=== PATIENT | female | born 1995 ===

== ENCOUNTER 2018-07-05 02:31 | Inpatient (IN) | payer MEDICAID, SELFPAY ==
[2018-07-05 03:14] VITALS: BMI 30.9
[2018-07-05] MEDS ORDERED: Lactated Ringer's 1,000 ML IV ONE (06:11)
[2018-07-05] MEDS ORDERED: Lactated Ringer's 1,000 ML IV SCH (06:15)
--- NOTE | 2018-07-05 06:42 | OBHP ---
Datetime: 07/05/2018 06:05 IP Adm Impression: Term, intrauterine ; No Active Labor; Ruptured Membranes IP Admit Plan: Admit to unit; Initiate labor protocol; Initiate labor augmentation protocol Admit Comment, IP Provider: 22 yo IUP at 40w c/o leaking at 2am. yellowish and conitunous. Oc c CTX. No VB. PNC: CFH x6 MARCH 2 starting 27w PMH: PPD+ PSH: denies NKA PSoH: denies smoking ETOH drugs PFH: A: IUP 40+w Latent phase of labor PPD+ PLAN: Admit to L_D IV access Condition, labor pain management, labor, delivery and its risks/complications discussed. She unde rstood...agreed to augmentation Extremities - PN: Normal Abdomen - PN: Normal Back - PN: Normal Lungs - PN: Normal Heart - PN: Normal Thyroid - PN: Normal Neurologic - PN: Normal HEENT - PN: Normal General - PN: Normal Presentation-Admit: Vertex IP Fetus A Comments: sopno ceph FHR - Baseline A Provider: 130 Amniotic Fluid Color, Provider: Meconium, Light Membranes, Provider: Ruptured Pool Provider: Positive IP Hx Assessment: The History has been Reviewed and is Current EGA AdmitDate IP: 40.2 IP Chief Complaint: Uterine contractions; Suspected ruptured membranes NICHD Variability Prov Fetus A: Moderate 6-25bpm NICHD Accel Fetus A IP Provider: 15X15 FHR Category Provider Fetus A: Category I NICHD Decel Fetus A IP Provider: None Dilatation, Provider: 2-3 Effacement, Provider: 80 Station, Provider: -1 Genitourinary Exam: Normal
[2018-07-05 07:45] LABS: BASO % 0.3 % (0.0-2.0); EOS # 0.1 K/uL (0.0-0.7); EOS % 0.8 % (0.0-4.0); HEMOGLOBIN 11.7 g/dL (12.0-16.0); LYMPH # 3.9 K/uL (1.0-4.3); LYMPH % 29.4 % (20.0-40.0); MEAN CELL VOLUME 88.6 fl (81.0-99.0); MEAN CORPUSCULAR HEMOGLOBIN 28.8 pg (27.0-31.0); MEAN CORPUSCULAR HGB CONC 32.5 g/dL (33.0-37.0); MEAN PLATELET VOLUME 10.4 fl (7.2-11.7); MONO # 0.9 K/uL (0.0-0.8); MONO % 6.8 % (0.0-10.0); NEUT # 8.4 K/uL (1.8-7.0); NEUT % 62.7 % (50.0-75.0); NRBC % 0.1 % (0.0-0.0); RBC 4.05 Mil/uL (3.80-5.20); RED CELL DISTRIBUTION WIDTH 15.4 % (11.5-14.5); WHITE BLOOD COUNT 13.4 K/uL (4.8-10.8)
--- NOTE | 2018-07-05 07:46 | OBADHP ---
Datetime: 07/05/2018 06:05 Admit Comment, IP Provider: 22 yo IUP at 40w c/o leaking at 2am. yellowish and conitunous. Oc c CTX. No VB. PNC: CFH x6 MARCH 2 starting 27w PMH: PPD+ PSH: denies NKA PSoH: denies smoking ETOH drugs PFH: A: IUP 40+w Latent phase of labor PPD+ PLAN: Admit to L_D IV access Condition, labor pain management, labor, delivery and its risks/complications discussed. She unde rstood...agreed to augmentation Extremities - PN: Normal Abdomen - PN: Normal Back - PN: Normal Lungs - PN: Normal Heart - PN: Normal Thyroid - PN: Normal Neurologic - PN: Normal HEENT - PN: Normal General - PN: Normal Presentation-Admit: Vertex IP Fetus A Comments: sopno ceph FHR - Baseline A Provider: 130 Amniotic Fluid Color, Provider: Meconium, Light Membranes, Provider: Ruptured Pool Provider: Positive IP Hx Assessment: The History has been Reviewed and is Current IP Chief Complaint: Uterine contractions; Suspected ruptured membranes NICHD Variability Prov Fetus A: Moderate 6-25bpm NICHD Accel Fetus A IP Provider: 15X15 FHR Category Provider Fetus A: Category I NICHD Decel Fetus A IP Provider: None Dilatation, Provider: 2-3 Effacement, Provider: 80 Station, Provider: -1 Genitourinary Exam: Normal EGA AdmitDate IP: 40.2 IP Adm Impression: Term, intrauterine ; No Active Labor; Ruptured Membranes IP Admit Plan: Admit to unit; Initiate labor protocol; Initiate labor augmentation protocol
--- NOTE | 2018-07-05 17:50 | OBPN ---
Datetime: 07/05/2018 17:43 IP Progress Plan: Induction FHR - Baseline A Provider: 140 Presentation-Admit: Vertex IP Progress Note Comment: s: comfortable w/ epidural; no c/o i: 40.2wks prom LowGrade Temp@100- follow closely p: continue augment of pitocin expectant VD Vital Signs Provider: Reviewed FHR Category Provider Fetus A: Category I NICHD Variability Prov Fetus A: Moderate 6-25bpm Dilatation, Provider: 6-7 Effacement, Provider: 80 Station, Provider: -3 NICHD Decel Fetus A IP Provider: None Datetime: 07/05/2018 06:05 Pool Provider: Positive Membranes, Provider: Ruptured Amniotic Fluid Color, Provider: Meconium, Light IP Fetus A Comments: sopno ceph NICHD Accel Fetus A IP Provider: 15X15
[2018-07-05] MEDS ORDERED: Gentamicin 80 mg/2mL Inj. IVPB STA (19:22)
[2018-07-05] MEDS ORDERED: AMPicillin 2 GM in Sodium Chloride 0.9% 100 ML IVPB SCH (19:30)
[2018-07-05] MEDS ORDERED: GENTAMICIN IVPB STA (19:46)
[2018-07-05] MEDS ORDERED: SODIUM CHLORIDE 0.9% IVPB STA (19:46)
[2018-07-05] MEDS ORDERED: Lidocaine 2% MPF (5 ml) Inj ONE (21:40)
[2018-07-05] MEDS ORDERED: Morphine 1 mg/ml preservative-free Inj(Duramorph) ONE (22:25)
[2018-07-05] MEDS ORDERED: Oxycodone/Acetaminophen 5/325 mg Tab PO PRN ×2 (23:50)
[2018-07-06] MEDS ORDERED: OXYTOCIN/0.9 % NS 20 UNIT/1,000 ML BAG IV SCH (00:45)
[2018-07-06] MEDS ORDERED: Oxycodone/Acetaminophen 5/325 mg Tab PO PRN (02:56)
[2018-07-06] MEDS ORDERED: Lactated Ringer's 1,000 ML IV SCH (02:56)
[2018-07-06] MEDS ORDERED: Simethicone 80 mg Chewtab PO SCH (04:00)
[2018-07-06] MEDS: Simethicone 80 mg Chewtab PO SCH ×4 (05:22→21:26)
[2018-07-06 07:45] LABS: MEAN CELL VOLUME 88.8 fl (81.0-99.0); MEAN CORPUSCULAR HEMOGLOBIN 29.8 pg (27.0-31.0); MEAN CORPUSCULAR HGB CONC 33.5 g/dL (33.0-37.0); RBC 3.01 Mil/uL (3.80-5.20); RED CELL DISTRIBUTION WIDTH 15.8 % (11.5-14.5); WHITE BLOOD COUNT 20.6 K/uL (4.8-10.8)
[2018-07-06] MEDS: Multivitamin With Minerals Tab PO SCH ×2 (07:51→14:35)
--- NOTE | 2018-07-06 08:10 | OBDS ---
DELIVERY PERSONNEL Delivery Doctor: William Lopez MD Turbine Room Attendant: Harinder Pfeiffer RN, Shemar Anesthesiologist: Dr. Hurley Resident: Dr. Senthil Longo MATERNAL INFORMATION Delivery Anesthesia: Epidural Medications in Delivery: Pitocin Estimated Blood Loss (ml): 800 Placenta Cultured: No Maternal Complications: Chorioamnionitis; Maternal Fever Provider Comments: op note preop dx: arrest of descent; choriamniontis postop dx: same; direct op procedure: lftcd surgeon:miranda 1st asst: pgy2 dr stoner 2nd asst: pgy1 barrera gutierrez anesth: dr de guzman --epidural findings: viable male, direct oop ebl 800cc no complic plac to path neon to special care nurser pt to rr no complicaitons LABOR SUMMARY EDC: 07/03/2018 00:00 No. Babies in Womb: 1 Attempted: No Labor Anesthesia: Epidural LABOR INFORMATION Reason for Induction: Not Applicable Onset of Labor: 07/05/2018 11:00 Oxytocin: Augmentation Group B Beta Strep: Negative Antibiotics # of Doses: 2 Antibiotics Time of Last Dose: 2109 Steroids Given: None Reason Steroids Not Administered: Not Applicable MEMBRANES Membranes Rupture Method: Spontaneous Rupture of Membranes: 07/05/2018 02:00 Length of Rupture (hrs): 20.07 Amniotic Fluid Color: Clear Amniotic Fluid Amount: Large Amniotic Fluid Odor: Normal STAGES OF LABOR Stage 3 hrs: 0 Stage 3 min: 2 Total Time in Labor hrs: 11 Total Time in Labor min: 6 CSECTION DELIVERY Primary Indication: Arrest of Dilatation Secondary Indication: Other Other Secondary Indication: Chorioamionitis/Maternal Fever CSection Urgency: Elective CSection Incidence: Primary Labor: Labor CSection Incision: Lower Uterine Transverse BABY A INFORMATION Infant Delivery Date/Time: 07/05/2018 22:04 Method of Delivery: Born in Route : No : N/A Forceps: N/A Vacuum Extraction: N/A Shoulder Dystocia : No SHOULDER DYSTOCIA BABY A Infant Delivery Date/Time: 07/05/2018 22:04 PRESENTATION/POSITION BABY A Presentation: Cephalic Vertex Position: Direct OP Breech Presentation: N/A PLACENTA INFORMATION BABY A Placenta Delivery Time : 07/05/2018 22:06 Placenta Method of Delivery: Manual Removal Placenta Status: Delivered SCORES BABY A Heart Rate 1 min: >100 bpm Resp Effort 1 min: Good Cry Reflex Irritability 1 min: Cough or Sneeze or Pulls Away Muscle Tone 1 min: Active Motion Color 1 min: Body [place], Extremities Blue Resuscitation Effort 1 min: Tactile Stimulation SCORE 1 MIN: 9 Heart Rate 5 min: >100 bpm Resp Effort 5 min: Good Cry Reflex Irritability 5 min: Cough or Sneeze or Pulls Away Muscle Tone 5 min: Active Motion Color 5 min: Body [place], Extremities Blue Resuscitation Effort 5 min: N/A SCORE 5 MIN: 9 INFORMATION BABY A Gestational Age at Delivery: 40.2 Gestational Status: Term Outcome : Liveborn Infant Condition : Stable Infant Sex: Male IDENTIFICATION/MEDS BABY A ID Band Number: [id number] ID Band Location: Left Leg; Left Arm WEIGHT/LENGTH BABY A Infant Birthweight (gms): 3560 Weight (lb): 7 Weight (oz): 14 Length Inches: 21.00 Length cms: 53.3 CORD INFORMATION BABY A No. Cord Vessels: 3 Nuchal Cord : N/A Cord Blood Taken: Yes Infant Suction: Mouth; Nose ASSESSMENT BABY A Complications: None Physical Findings at Delivery: Within Normal Limits Infant Respirations: Appears Normal Organizational Development Director/ALS Called : No Care By: Dr. Verdugo MZapella ALESSIO Transferred To: Nursery
--- NOTE | 2018-07-06 08:33 | OBPPN ---
Datetime: 07/06/2018 07:15 PP Pain Prov: Within normal limits PP Nausea Prov: Denies PP Flatus Prov: No PP BM Prov: No PP C/S Incision Prov: Normal PP Impression Prov: Normal progression PP Plan Prov: Continue present management PP Progress Note Prov: POD 1 S: Pt is a s/p C section on 07/05 for arrested labor. Today pt denies anypain or discomfort. States she has vaginal bleedng similar to menstruation. Denies any n/v. No BM yet. NPO overnight. Pt has not yet ambulated since moser removal this am. Denies chills, lightheadedness. Moser removed this morning. Desires circumcision for baby boy. O: Vitals stable overnight, no fevers General: NAD Cardiopulmonary exam wnl Abdomen: Soft, appropriate tenderness over incision site. Dressing clean/dry/in tact. Uterus firm Ex: no edema H/H: 11.7/35.8 A: s/p C section, doing well on pp day 1. Received 1 dose of Ampicillin and Gent ABX yesterda y due to fever in setting of prolonged rupture of membranes. Afebrile overnight. Pain controlled. Kieran l advance diet today. Encouraged ambulation. -Encourage breast feeding -Pain Scale: Ibuprofen for mild, and Percocet for Mod-Severe -Tosha Coburn, PGY2 Patient seen and examined by me this am. Agree with above note. Patient afebrile this am. --Dr. Bergeron Vital Signs Provider PP: Reviewed Vital Signs Provider Details PP: Afebrile
[2018-07-06] MEDS ORDERED: GENTAMICIN IVPB SCH (09:00)
[2018-07-06] MEDS ORDERED: Multivitamin With Minerals Tab PO SCH (09:00)
[2018-07-06] MEDS ORDERED: SODIUM CHLORIDE 0.9% IVPB SCH (09:00)
[2018-07-06] MEDS ORDERED: AMPicillin 2 GM in Sodium Chloride 0.9% 100 ML IVPB SCH ×2 (10:00→14:00)
[2018-07-06] MEDS: Oxycodone/Acetaminophen 5/325 mg Tab PO PRN ×3 (10:30→21:27)
[2018-07-06] MEDS: GENTAMICIN IVPB SCH (10:33)
[2018-07-06] MEDS: SODIUM CHLORIDE 0.9% IVPB SCH (10:33)
[2018-07-06] MEDS ORDERED: Gentamicin 80 mg/2mL Inj. IVPB SCH (20:08)
[2018-07-06] MEDS: AMPicillin 2 GM in Sodium Chloride 0.9% 100 ML IVPB SCH (20:21)
[2018-07-06] MEDS: Docusate-Senna 50 mg-8.6 mg Tab PO SCH (21:29)
[2018-07-06] MEDS ORDERED: Docusate-Senna 50 mg-8.6 mg Tab PO SCH ×2 (22:00)
[2018-07-07] MEDS: AMPicillin 2 GM in Sodium Chloride 0.9% 100 ML IVPB SCH ×2 (02:17→08:25)
[2018-07-07] MEDS: Simethicone 80 mg Chewtab PO SCH ×4 (03:45→23:14)
[2018-07-07] MEDS: Oxycodone/Acetaminophen 5/325 mg Tab PO PRN (08:27)
[2018-07-07] MEDS: Multivitamin With Minerals Tab PO SCH (08:28)
[2018-07-07] MEDS: SODIUM CHLORIDE 0.9% IVPB SCH (10:12)
[2018-07-07] MEDS: GENTAMICIN IVPB SCH (10:12)
[2018-07-07] MEDS ORDERED: Measles, Mumps, and Rubella 0.5 ML VIAL SC ONE (11:30)
--- NOTE | 2018-07-07 11:48 | OBPPN ---
Datetime: 07/07/2018 07:04 PP Pain Prov: Within normal limits PP Heart Prov: Normal PP Lungs Prov: Normal PP Extremities Prov: Normal PP Comments Phys Exam Prov: General: NAD HEENT: atraumatic and normecephalic, EOMI CV: RRR, s1 and s2 present, no murmurs Resp: CTA ivonne Abdomen: soft, surgical wound well aproximated, uterus at umbilicus level LE: no edema, Homans neg PP Progress Note Prov: 22 y/o s/p C section on 07/05/18 at 22:04 with 40.2 weeks for arrest of la bor, patient is seen and examined at bedside this AM. Patient had uneventful overnight. Patient repor ts mild pelvic pain controlled w/ pain meds. Patient is getting OOB and Ambulating w/o dizziness. Isabela erating PO liquids well. Lochia is like menses in volume, voiding w/ no blood noted. Reports passing gas per rectum, no bowel movement yet. Denies fevers since yesterday, chills, n/v/d, CP/SOB, lighthea dedness and calf pain, palpitations, chest pain. Assessment: 22 y/o s/p C section on 07/05/2018 @ 22:04, tolerating pain w/ medication, tolerati ng oral intake, adequate urine output, doing well on POD2. Plan: Ibuprofen 600 mg 1 tab Q6h PO prn for mild pain. -Percocet 5/325 mg 1-2 tabs PO Q6h prn for mod/severe pain. -Encourage breast feeding and ambulatio Adolfo Ndiaye MD PGY1 Patient seen and examined by me this am. Agree with above resident note. --Dr. Bergeron
[2018-07-07] MEDS: Docusate-Senna 50 mg-8.6 mg Tab PO SCH (23:14)
[2018-07-08] MEDS: Simethicone 80 mg Chewtab PO SCH ×2 (05:16→11:22)
[2018-07-08] MEDS ORDERED: Measles, Mumps, and Rubella 0.5 ML VIAL SC ONE ×2 (07:00→09:00)
[2018-07-08] MEDS: Multivitamin With Minerals Tab PO SCH (08:58)
--- NOTE | 2018-07-08 13:15 | OBPPN ---
Datetime: 07/08/2018 06:44 PP Pain Prov: Within normal limits PP Impression Prov: Normal progression PP Plan Prov: Continue present management; Discharge PP Progress Note Prov: 22 y/o s/p C section on 07/05/18 at 22:04 with 40.2 weeks for arrest of la bor, patient is seen and examined at bedside this morning. Patient had uneventful overnight. Patient reports mild pelvic pain controlled w/ pain meds and states is less pain compared to previous day. Pa tient is getting OOB and Ambulating w/o difficulties. Tolerating PO liquids well. Lochia is less than menses in volume, voiding w/ no blood noted. Reports passing gas per rectum, no bowel movement yet. Denies fevers, chills, n/v/d, dysuria, CP/SOB, lightheadedness, calf pain, palpitations, chest pain. Physical exam: GENERAL: NAD Cardio: RRR, S1 S2 present, no murmurs Lungs: CTA bilateral, no wheezing Abdomen: BS+, Pfannenstiel Incision present is closed and well approximated with clean margins, no erythema or discharge is noted, uterus below the umbilicus. EXT: No edema, Amado's negative. NEURO/PSYCH: AAOx3, no grossly focal deficits, preserved affect and mood. Assessment: 22 y/o s/p C section on 07/05/2018 @ 22:04, tolerating pain w/ medication, tolerati ng oral intake, adequate urine output, afebrile and doing well on POD3. Plan: -Ibuprofen 600 mg 1 tab Q6h PO prn for mild pain. -Percocet 5/325 mg 1-2 tabs PO Q6h prn for mod/severe pain. -Encourage breast feeding and ambulation -D/C home today A MD Senthil PGY1 Patient seen and examined by me this am. Agree with above note. Patient for discharge home today. To rtc on Thursday on 07/12/18 --Dr. Bergeron Vital Signs Provider PP: Reviewed; Within Normal Limits
--- NOTE | 2018-07-08 13:15 | OBDCSUM ---
Datetime: 07/08/2018 06:55 Discharged to, Provider: Home Follow up at, Provider: [facility] Disch Instr Activity: Normal activity Disch Instr Diet: Regular Discharge Instructions, Provider: Routine instructions given Discharge Diagnosis, Provider: Term Delivered Discharge Time: 07/08/2018 12:00 Follow up in weeks, Provider: Thursday07/12/2018 Disch Referrals: None Contraception discussed, Prov: Yes Disch Activity Restrictions: No driving; No sexual activity; Nothing in vagina - [place], tampon s, douche Discharge Comment, Provider: 22 y/o s/p C section, delivered a baby boy on 07/05/18 at 22:04 @ 40 .2 weeks, Wt 3565 gms, 9/9. The patient is doing well, and stable for D/C on POD3, patient repo rts only mild pelvic pain that gets relief with oral medication, patient is tolerating oral food, voi ding w/o difficulties, lochia is less than menses, she is afebrile, is getting OOB and ambulating w/o difficulties, denies palpitations, dizziness, CP, SOB, N/V/D, calf pain. Physical EXam: GEN:NAD CV:RRR,No murmurs noted RESP:CTA b/l ABD: Soft, Uterus frim below umbilicus LE: No edema, Amado's negative D/C Instructions: -Discharge today -Encourage -Ibuprofen 600 mg PO 1 tab PO Q6h for pain PRN. -Percocet 1 tab PO Q6h PRN pain/moderate to severe -Ambulate w/caution, no heavy lifting, if new symptoms of pain or bleeding or fever are present go to ED. - F/U with your PMD in 1 week for wound check and visit in 4 to 6 weeks. Adolfo Ndiaye MD PGY1 Agree with above resident note --Dr. Barrera-Lam Contraception after Delivery: IUD
[2018-07-08 17:56] VITALS: BP 106/76; PULSE 70; RESP 18; TEMP 98.2; O2SAT 99
[2018-07-09 09:54] LABS: RUBELLA AB (IGG) <0.90 index
== END 2018-07-08 13:00 | disposition home or self-care (01) | DRG 371 ==
LOC: H.EROB2 02:31 → H.L&D 06:11 → H.OB/GYN 07-06 02:30
PROVIDERS: ADMIT Obstetrics & Gynecology; ATTEND Obstetrics & Gynecology
PROC: 10D00Z1 Extraction of Products of Conception, Low, Open Approach (ICD-10-PCS; principal; 2018-07-05)
PROC: 4A1HXCZ Monitoring of Products of Conception, Cardiac Rate, External Approach (ICD-10-PCS; 2018-07-05)
DX: O62.0 Primary inadequate contractions (principal); O75.2 Pyrexia during labor, not elsewhere classified; O62.1 Secondary uterine inertia; Z37.0 Single live birth; Z3A.40 40 weeks gestation of pregnancy; O41.1290 Chorioamnionitis, unspecified trimester, not applicable or unspecified; O42.90 Premature rupture of membranes, unspecified as to length of time between rupture and onset of labor, unspecified weeks of gestation; Z98.891 History of uterine scar from previous surgery